=== PATIENT | female | born 1945 | race Caucasian/White ===

== ENCOUNTER 2021-08-16 10:12 | Inpatient (IN) ==
[2021-08-16] MEDS ORDERED: *HR* LORazepam 2 MG/ML VIAL IVP STA (12:49)
[2021-08-16] MEDS ORDERED: *HR* LORazepam 2 MG/ML VIAL IM ONE (12:50)
[2021-08-16] MEDS ORDERED: Naloxone 0.4 MG/ML INJ IVP PRN (17:49)
[2021-08-16] MEDS ORDERED: Acetaminophen 325 MG TABLET PO PRN (17:49)
[2021-08-16] MEDS: QUEtiapine Fumarate 25 MG TABLET PO PRN (20:10)
[2021-08-17 05:52] LABS: Hematocrit 39.1 % (35.3-44.9); Hemoglobin 12.9 g/dL (11.5-15.4); Mean Corpuscular Hemoglobin 29.7 pg (28.0-33.3); Mean Corpuscular Volume 90.1 fL (83.0-100.0); Platelet Count 283 K/mcL (140-400); Red Blood Count 4.34 M/mcL (3.82-4.97); Red Cell Distribution Width 12.5 % (11.5-14.5); White Blood Count 5.6 K/mcL (4.3-11.1)
[2021-08-17 06:14] LABS: BUN/Creatinine Ratio 19 (6-26); Blood Urea Nitrogen 11 mg/dL (8-23); Calcium 9.3 mg/dL (8.6-10.3); Carbon Dioxide 28 mEq/L (23-29); Chloride 102 mEq/L (98-107); Glucose 84 mg/dL (70-105); Osmolality,Calculated 283 (280-300); Potassium 3.8 mEq/L (3.5-5.1); Sodium 137 mEq/L (136-145); eGFR For African Americans > 60 (> 60); eGFR For Non-African Americans > 60 (> 60)
[2021-08-17] MEDS: *HR* Heparin 5,000 UNIT/ML VIAL SQ SCH ×2 (06:33→17:27)
[2021-08-17] MEDS: Metoprolol XL (24 HR) Succ 25 MG TAB.ER.24H PO SCH (07:58)
[2021-08-17] MEDS: QUEtiapine Fumarate 25 MG TABLET PO PRN (20:38)
[2021-08-18] MEDS ORDERED: Melatonin 3 MG TABLET PO ONE (03:40)
[2021-08-18] MEDS: *HR* Heparin 5,000 UNIT/ML VIAL SQ SCH ×2 (05:04→17:45)
[2021-08-18] MEDS ORDERED: Haloperidol Lactate 5 MG/ML VIAL IM ONE (08:17)
[2021-08-18] MEDS ORDERED: Haloperidol Lactate 5 MG/ML VIAL IVP STA (08:29)
[2021-08-18] MEDS ORDERED: Haloperidol Lactate 5 MG/ML VIAL IM PRN (08:46)
[2021-08-18] MEDS: Metoprolol XL (24 HR) Succ 25 MG TAB.ER.24H PO SCH (09:16)
[2021-08-18] MEDS: Haloperidol Lactate 5 MG/ML VIAL IVP PRN (14:49)
[2021-08-19] MEDS: *HR* Heparin 5,000 UNIT/ML VIAL SQ SCH ×2 (06:23→17:36)
[2021-08-19] MEDS: Metoprolol XL (24 HR) Succ 25 MG TAB.ER.24H PO SCH (08:16)
[2021-08-19] MEDS: QUEtiapine Fumarate 25 MG TABLET PO SCH (11:37)
[2021-08-19] MEDS: Haloperidol Lactate 5 MG/ML VIAL IVP PRN (19:55)
[2021-08-20 07:05] VITALS: O2SAT 95
[2021-08-20] MEDS: *HR* Heparin 5,000 UNIT/ML VIAL SQ SCH (07:53)
[2021-08-20] MEDS: Metoprolol XL (24 HR) Succ 25 MG TAB.ER.24H PO SCH (09:33)
[2021-08-20] MEDS: QUEtiapine Fumarate 25 MG TABLET PO SCH ×2 (09:46→09:51)
[2021-08-20 12:03] VITALS: BP 130/80; PULSE 80; TEMP 97.6
== END 2021-08-20 15:12 | disposition home health service (06) | DRG 885 ==
LOC: EMEROOARM 10:12 → 3ANU 10:12 → SUATTDRO 18:06 → 3ANU 19:55
PROVIDERS: ADMIT Student in an Organized Health Care Education/Training Program; ATTEND Student in an Organized Health Care Education/Training Program